=== PATIENT | female | born 1975 | race Caucasian/White ===

== ENCOUNTER 2017-04-05 09:56 | Day surgery (SDC) | payer OTHER ==
[~2017-04-05] VITALS: Ht 157.6 cm; Wt 123.8 kg
[2017-04-05] VITALS (10 sets, daily range): BP systolic 98–142; BP diastolic 66–97; PULSE 78–92; TEMP 98.3
[~2017-04-05 09:56] MED LIST: ASPI325T6 PO; CEPHALEXIN500 M1 PO; CULTURELLE IMM1 EACH PO; DIFLUCAN 100MG100 MG PO; FLEXERIL 1010 MG/TAB PO; NEXIUM 20MG20 MG PO; NEXIUM 40MG40 MG PO; NO HOME MEDICATIONS; NORCO 325 MG-51 TAB PO; PHENERGAN 25 TA25 MG PO; PHENERGAN25 MG RC; PREMARIN 0.60.625 M1 PO; PRILOSEC 20MG20 MG PO; PRINIVIL10 MG PO; SYNTHROID 0.0.025 MG PO; TOPROL XL 50MG50 MG PO; ZANTAC 150MG T150 MG PO; ZOLOFT 25MG25 MG PO
[2017-04-05 10:51] LABS: HEMATOCRIT 41.1 % (37.0-47.0); HEMOGLOBIN 13.7 g/dl (12.5-16.0); MEAN CELL VOLUME 92 fl (80.0-100.0); MEAN CORPUSCULAR HEMOGLOBIN 31 pg (27.0-31.0); MEAN CORPUSCULAR HGB CONC 33 g/dl (33.0-37.0); MEAN PLATELET VOLUME 9.8 fl (7.4-10.4); PLATELET COUNT 326 K/mm3 (130-400); RED BLOOD COUNT 4.47 M/mm3 (4.10-5.30); WHITE BLOOD COUNT 6.8 K/mm3 (4.8-10.8)
[2017-04-05 11:00] LABS: CALCIUM 9.4 mg/dL (8.4-10.2); CREATININE, serum 0.74 mg/dL (0.52-1.25); PROTHROMBIN TIME 11.7 SECONDS (9.7-12.8)
[2017-04-05] MEDS ORDERED: PLAVIX 75MG TAB75 MG PO (11:43)
[2017-04-05] MEDS ORDERED: NITROSTAT0.4 MG/TAB SL (11:43)
[2017-04-05] MEDS ORDERED: IMDUR 30MG30 MG/TAB PO (11:44)
[2017-04-05] MEDS ORDERED: PRILOSEC 20MG20 MG PO (11:46)
[2017-04-05] MEDS ORDERED: CYMBALTA 30MG30 MG PO (11:47)
[2017-04-05] MEDS ORDERED: B-121000 MCG PO (11:48)
[2017-04-05] MEDS ORDERED: SYNTHROID0.1 MG/TAB PO (11:49)
[2017-04-05] MEDS ORDERED: ATARAX 25MG25 MG/TAB PO (11:51)
[2017-04-05] MEDS ORDERED: MAG-OX 400400 MG/TAB PO (11:52)
== END 2017-04-05 16:30 | disposition home or self-care (01) ==
LOC: COL.CAR 09:56
PROVIDERS: Internal Medicine Interventional Cardiology
DX: R07.9 Chest pain, unspecified (principal); R94.39 Abnormal result of other cardiovascular function study; Z95.818 Presence of other cardiac implants and grafts; Z82.49 Family history of ischemic heart disease and other diseases of the circulatory system; Z82.3 Family history of stroke
CPT/HCPCS: J2250; J3010; Q9967

== ENCOUNTER 2017-06-24 00:07 | Emergency (ER) | payer OTHER ==
[~2017-06-24] VITALS: Ht 157.5 cm; Wt 122.7 kg
[~2017-06-24 00:07] MED LIST changes: +ATARAX 25MG25 MG/TAB PO; +B-121000 MCG PO; +CYMBALTA 30MG30 MG PO; +IMDUR 30MG30 MG/TAB PO; +MAG-OX 400400 MG/TAB PO; +NITROSTAT0.4 MG/TAB SL; +PLAVIX 75MG TAB75 MG PO; +SYNTHROID0.1 MG/TAB PO
[2017-06-24 00:11] VITALS: TEMP 97.9
[2017-06-24] MEDS ORDERED: MAGNESIUM OXID500 MG PO (00:41)
[2017-06-24] MEDS ORDERED: VITAMIN D32000 I1 PO (00:42)
[2017-06-24] MEDS ORDERED: HYGROTON 2525 MG/TAB (00:43)
[2017-06-24 00:58] LABS: BASO % 0.5 % (0.0-2.0); EOS # 0.2 (0.0-0.7); EOS % 2.4 % (0-4.0); GRAN # 4.3 (1.4-6.5); GRAN % 56.7 % (42.2-75.2); HEMOGLOBIN 15.5 g/dl (12.5-16.0); LYMPH # 2.4 (1.2-3.4); MEAN CELL VOLUME 90 fl (80.0-100.0); MEAN CORPUSCULAR HEMOGLOBIN 31 pg (27.0-31.0); MEAN CORPUSCULAR HGB CONC 34 g/dl (33.0-37.0); MEAN PLATELET VOLUME 10.1 fl (7.4-10.4); MONO # 0.6 (0.1-0.6); PLATELET COUNT 331 K/mm3 (130-400); RED BLOOD COUNT 4.98 M/mm3 (4.10-5.30); REDCELL DISTRIBUTION WIDTH-CV 13.1 % (11.5-14.5)
[2017-06-24 01:08] LABS: ALANINE AMINOTRANSFERASE 42 U/L (9-52); ALBUMIN 4.6 gm/dL (3.5-5.0); ALKALINE PHOSPHATASE 113 U/L (50-136); ANION GAP 13 mmol/L (7-16); AST,SGOT 34 U/L (15-37); BILIRUBIN,TOTAL 0.5 mg/dL (0.0-1.0); BLOOD UREA NITROGEN 15 mg/dL (7-17); C-REACTIVE PROTEIN 0.9 mg/dL (0.0-0.9); CALCIUM 9.5 mg/dL (8.4-10.2); CARBON DIOXIDE 27 mmol/L (22-30); CHLORIDE 101 mmol/L (98-107); CREATININE, serum 0.97 mg/dL (0.52-1.25); GLUCOSE 158 mg/dL (74-106); POTASSIUM 3.7 mmol/L (3.4-5.0); SODIUM 141 mmol/L (137-145)
[2017-06-24 01:17] LABS: TROPONIN-I < 0.012 ng/mL (0.000-0.034)
[2017-06-24 01:44] VITALS: BP 119/83; PULSE 87
== END 2017-06-24 01:54 | disposition home or self-care (01) ==
LOC: COL.ER 00:07
PROVIDERS: Emergency Medicine
DX: R00.2 Palpitations (principal); Z98.890 Other specified postprocedural states; Z79.82 Long term (current) use of aspirin; Z79.02 Long term (current) use of antithrombotics/antiplatelets

== ENCOUNTER 2017-08-15 21:19 | Emergency (ER) | payer OTHER ==
[~2017-08-15] VITALS: Ht 157.5 cm; Wt 123.6 kg
[~2017-08-15 21:19] MED LIST changes: +HYGROTON 2525 MG/TAB; +MAGNESIUM OXID500 MG PO; +VITAMIN D32000 I1 PO
[2017-08-15 21:22] VITALS: TEMP 99.1
[2017-08-15 22:10] LABS: BASO # 0.1 (0.0-0.2); BASO % 0.8 % (0.0-2.0); EOS # 0.2 (0.0-0.7); EOS % 2.7 % (0-4.0); GRAN # 3.4 (1.4-6.5); GRAN % 53.9 % (42.2-75.2); HEMATOCRIT 39.9 % (37.0-47.0); HEMOGLOBIN 13.9 g/dl (12.5-16.0); LYMPH # 2.1 (1.2-3.4); LYMPH % 34.4 % (20.0-51.0); MEAN CELL VOLUME 89 fl (80.0-100.0); MEAN CORPUSCULAR HEMOGLOBIN 31 pg (27.0-31.0); MEAN CORPUSCULAR HGB CONC 35 g/dl (33.0-37.0); MEAN PLATELET VOLUME 9.8 fl (7.4-10.4); MONO # 0.5 (0.1-0.6); MONO % 7.9 % (1.7-9.3); PLATELET COUNT 324 K/mm3 (130-400); REDCELL DISTRIBUTION WIDTH-CV 13.1 % (11.5-14.5)
[2017-08-15 22:26] LABS: ALANINE AMINOTRANSFERASE 42 U/L (9-52); ALBUMIN 3.8 gm/dL (3.5-5.0); ALKALINE PHOSPHATASE 115 U/L (50-136); ANION GAP 14 mmol/L (7-16); AST,SGOT 37 U/L (15-37); BILIRUBIN,TOTAL 0.5 mg/dL (0.0-1.0); BLOOD UREA NITROGEN 10 mg/dL (7-17); C-REACTIVE PROTEIN 2.3 mg/dL (0.0-0.9); CALCIUM 9.3 mg/dL (8.4-10.2); CARBON DIOXIDE 29 mmol/L (22-30); CHLORIDE 101 mmol/L (98-107); CREATININE, serum 0.73 mg/dL (0.52-1.25); GLUCOSE 118 mg/dL (74-106); SODIUM 144 mmol/L (137-145); TOTAL PROTEIN 7.4 gm/dL (6.4-8.2)
[2017-08-15 22:35] LABS: TROPONIN-I < 0.012 ng/mL (0.000-0.034)
[2017-08-15 22:39] LABS: COLLECTION METHOD CLEAN CATCH
[2017-08-15 22:45] LABS: PH 7 (5-8); SQUAMOUS EPITHELIAL 0-2 /hpf; URINE APPEARANCE Clear; URINE BACTERIA None Seen /hpf; URINE BILIRUBIN Negative (NEGATIVE); URINE BLOOD Negative (NEGATIVE); URINE COLOR Yellow; URINE GLUCOSE Negative (NEGATIVE); URINE KETONE Negative (NEGATIVE); URINE LEUKOCYTE ESTERASE Negative (NEGATIVE); URINE NITRATE Negative (NEGATIVE); URINE PROTEIN(semi-quant) Negative (NEGATIVE); URINE RBC 0-2 /hpf; URINE UROBILINOGEN Negative (NEGATIVE)
[2017-08-15 23:36] VITALS: BP 144/96; PULSE 90
== END 2017-08-15 23:39 | disposition home or self-care (01) ==
LOC: COL.ER 21:19
PROVIDERS: Emergency Medicine
DX: R47.01 Aphasia (principal); I10 Essential (primary) hypertension; Z79.82 Long term (current) use of aspirin; Z79.02 Long term (current) use of antithrombotics/antiplatelets

== ENCOUNTER → 2018-02-25 | Outpatient (CLI) | payer OTHER | LOC: COL.VAS 14:29 | DX: R09.02 Hypoxemia (principal); R06.02 Shortness of breath ==